=== PATIENT | male | born 1990 | race Caucasian/White ===

== ENCOUNTER 2023-05-21 15:00 | Emergency (ER) | payer BC, MEDICAID ==
[2023-05-21 15:44] LABS: BASOPHILS ABSOLUTE AUTO 0.08 K/uL (0.00-0.10); EOSINOPHILS ABSOLUTE AUTO 0.06 K/uL (0.00-0.40); EOSINOPHILS PERCENT AUTO 0.8 % (0.0-5.4); HEMATOCRIT 46.3 % (38.4-49.7); HEMOGLOBIN 16.7 g/dL (12.9-16.9); IMMATURE GRAN ABSOLUTE AUTO 0.03 K/uL (0.00-0.23); IMMATURE GRAN PERCENT AUTO 0.4 % (0.0-0.7); LYMPHOCYTES ABSOLUTE AUTO 2.05 K/uL (0.8-3.3); LYMPHOCYTES PERCENT AUTO 26.1 % (11.4-47.7); MEAN CORPUSCULAR HEMOGLOBIN 30.8 pg (31.6-35.5); MEAN CORPUSCULAR HGB CONC 36.1 g/dL (31.6-35.5); MEAN CORPUSCULAR VOLUME 85.4 fL (81.4-99.0); MONOCYTES ABSOLUTE AUTO 0.65 K/uL (0.20-0.90); MONOCYTES PERCENT AUTO 8.3 % (3.3-12.6); NEUTROPHILS ABSOLUTE AUTO 4.97 K/uL (1.0-7.6); NEUTROPHILS PERCENT AUTO 63.4 % (40.0-78.1); PLATELET COUNT,PLT 213 K/uL (130-375); RED BLOOD CELL COUNT 5.42 M/uL (4.14-5.76); WHITE BLOOD CELL COUNT,WBC 7.8 K/uL (3.2-11.0)
[2023-05-21 15:44] LABS: AMPHETAMINES SCREEN, URINE NEGATIVE (NEGATIVE); BARBITURATE SCREEN,URINE NEGATIVE (NEGATIVE); BENZODIAZEPINES SCREEN,URINE NEGATIVE (NEGATIVE); METHADONE SCREEN, URINE NEGATIVE (NEGATIVE); METHAMPHETAMINES SCREEN, URINE NEGATIVE (NEGATIVE); OXYCODONE SCREEN,URINE NEGATIVE (NEGATIVE); PROPOXYPHENE SCREEN,URINE NEGATIVE (NEGATIVE); THC SCREEN,URINE 50 NG/ML NEGATIVE (NEGATIVE)
[2023-05-21 15:59] LABS: CALCIUM 8.8 mg/dL (8.5-10.1); EST CRCL DRUG DOSING (CG) 110.86 mL/min; POTASSIUM,K 3.8 mmol/L (3.6-5.2)
[2023-05-21 16:06] LABS: ANION GAP 15.8 mmol/L (5.0-14.0)
[2023-05-21] MEDS ORDERED: LORazepam 1 MG Tab PO ONE (16:33)
== END 2023-05-21 17:04 | disposition home or self-care (01) ==
LOC: JP.ED 15:00
DX: F10.90 Alcohol use, unspecified, uncomplicated (principal)
CPT/HCPCS: 36415; 80048; 80305; 80307; 85025; 99284; A9270

== ENCOUNTER 2024-05-12 23:10 | Emergency (ER) | payer BC ==
[2024-05-13 00:11] LABS: AMPHETAMINES SCREEN, URINE NEGATIVE (NEGATIVE); BARBITURATE SCREEN,URINE NEGATIVE (NEGATIVE); BENZODIAZEPINES SCREEN,URINE NEGATIVE (NEGATIVE); METHADONE SCREEN, URINE NEGATIVE (NEGATIVE); METHAMPHETAMINES SCREEN, URINE NEGATIVE (NEGATIVE); OXYCODONE SCREEN,URINE NEGATIVE (NEGATIVE); PROPOXYPHENE SCREEN,URINE NEGATIVE (NEGATIVE); THC SCREEN,URINE 50 NG/ML PRESUMPTIVE POSITIVE (NEGATIVE)
== END 2024-05-13 01:20 | disposition home or self-care (01) ==
LOC: JP.ED 23:10
DX: F10.129 Alcohol abuse with intoxication, unspecified (principal); I10 Essential (primary) hypertension; Z79.899 Other long term (current) drug therapy
CPT/HCPCS: 36415; 80305-QW; 80307; 99284

== ENCOUNTER 2024-05-13 02:16 | Emergency (ER) | payer BC ==
[2024-05-13 05:58] LABS: BASOPHILS ABSOLUTE AUTO 0.06 K/uL (0.00-0.10); BASOPHILS PERCENT AUTO 0.7 % (0.1-1.3); EOSINOPHILS ABSOLUTE AUTO 0.07 K/uL (0.00-0.40); EOSINOPHILS PERCENT AUTO 0.8 % (0.0-5.4); HEMATOCRIT 44.7 % (38.4-49.7); HEMOGLOBIN 15.7 g/dL (12.9-16.9); IMMATURE GRAN ABSOLUTE AUTO 0.04 K/uL (0.00-0.23); IMMATURE GRAN PERCENT AUTO 0.4 % (0.0-0.7); LYMPHOCYTES ABSOLUTE AUTO 3.88 K/uL (0.8-3.3); LYMPHOCYTES PERCENT AUTO 42.5 % (11.4-47.7); MEAN CORPUSCULAR HEMOGLOBIN 31.8 pg (31.6-35.5); MEAN CORPUSCULAR HGB CONC 35.1 g/dL (31.6-35.5); MEAN CORPUSCULAR VOLUME 90.5 fL (81.4-99.0); MONOCYTES ABSOLUTE AUTO 1.01 K/uL (0.20-0.90); MONOCYTES PERCENT AUTO 11.1 % (3.3-12.6); NEUTROPHILS ABSOLUTE AUTO 4.06 K/uL (1.0-7.6); NEUTROPHILS PERCENT AUTO 44.5 % (40.0-78.1); PLATELET COUNT,PLT 251 K/uL (130-375); RED BLOOD CELL COUNT 4.94 M/uL (4.14-5.76); WHITE BLOOD CELL COUNT,WBC 9.1 K/uL (3.2-11.0)
[2024-05-13 06:10] LABS: ANION GAP 12.4 mmol/L (5.0-14.0); EST CRCL DRUG DOSING (CG) 106.72 mL/min; POTASSIUM,K 4.2 mmol/L (3.6-5.2)
== END 2024-05-13 07:56 | disposition other institution (70) ==
LOC: JP.ED 02:16
DX: F10.10 Alcohol abuse, uncomplicated (principal); I10 Essential (primary) hypertension; F17.210 Nicotine dependence, cigarettes, uncomplicated; Z79.899 Other long term (current) drug therapy
CPT/HCPCS: 36415; 80048; 80307; 85025; 99284

== ENCOUNTER 2024-10-25 21:09 | Emergency (ER) | payer BC | END 2024-10-25 21:44 | LOC: JP.ED 21:09 | DX: Z53.21 Procedure and treatment not carried out due to patient leaving prior to being seen by health care provider (principal) ==

== ENCOUNTER 2024-10-27 16:52 | Emergency (ER) | payer BC ==
[2024-10-27 17:21] LABS: AMPHETAMINES SCREEN, URINE NEGATIVE (NEGATIVE); BARBITURATE SCREEN,URINE NEGATIVE (NEGATIVE); BENZODIAZEPINES SCREEN,URINE NEGATIVE (NEGATIVE); METHADONE SCREEN, URINE NEGATIVE (NEGATIVE); METHAMPHETAMINES SCREEN, URINE NEGATIVE (NEGATIVE); OXYCODONE SCREEN,URINE NEGATIVE (NEGATIVE); PROPOXYPHENE SCREEN,URINE NEGATIVE (NEGATIVE); THC SCREEN,URINE 50 NG/ML PRESUMPTIVE POSITIVE (NEGATIVE)
== END 2024-10-27 18:38 | disposition home or self-care (01) ==
LOC: JP.ED 16:52
DX: F10.10 Alcohol abuse, uncomplicated (principal); I10 Essential (primary) hypertension; F17.200 Nicotine dependence, unspecified, uncomplicated; Z79.899 Other long term (current) drug therapy
CPT/HCPCS: 36415; 80305-QW; 80307; 99283; 99284

== ENCOUNTER 2025-02-01 20:13 | Emergency (ER) | payer BC | END 2025-02-01 21:15 | disposition left against medical advice (07) | LOC: JP.ED 20:13 | DX: Z53.21 Procedure and treatment not carried out due to patient leaving prior to being seen by health care provider (principal) ==

== ENCOUNTER 2025-02-05 15:57 | Emergency (ER) | payer BC ==
[2025-02-05 16:32] LABS: BASOPHILS ABSOLUTE AUTO 0.07 K/uL (0.00-0.10); BASOPHILS PERCENT AUTO 0.8 % (0.1-1.3); EOSINOPHILS ABSOLUTE AUTO 0.06 K/uL (0.00-0.40); EOSINOPHILS PERCENT AUTO 0.7 % (0.0-5.4); IMMATURE GRAN ABSOLUTE AUTO 0.03 K/uL (0.00-0.23); IMMATURE GRAN PERCENT AUTO 0.3 % (0.0-0.7); LYMPHOCYTES ABSOLUTE AUTO 3.57 K/uL (0.8-3.3); LYMPHOCYTES PERCENT AUTO 40.4 % (11.4-47.7); MONOCYTES ABSOLUTE AUTO 1.08 K/uL (0.20-0.90); MONOCYTES PERCENT AUTO 12.2 % (3.3-12.6); NEUTROPHILS ABSOLUTE AUTO 4.03 K/uL (1.0-7.6); NEUTROPHILS PERCENT AUTO 45.6 % (40.0-78.1); PLATELET COUNT,PLT 312 K/uL (130-375); RED BLOOD CELL COUNT 5.06 M/uL (4.14-5.76); WHITE BLOOD CELL COUNT,WBC 8.8 K/uL (3.2-11.0)
[2025-02-05 16:56] LABS: AMPHETAMINES SCREEN, URINE NEGATIVE (NEGATIVE); METHADONE SCREEN, URINE NEGATIVE (NEGATIVE); METHAMPHETAMINES SCREEN, URINE NEGATIVE (NEGATIVE); OXYCODONE SCREEN,URINE NEGATIVE (NEGATIVE); PROPOXYPHENE SCREEN,URINE NEGATIVE (NEGATIVE); THC SCREEN,URINE 50 NG/ML PRESUMPTIVE POSITIVE (NEGATIVE)
[2025-02-05 16:56] LABS: BLOOD UREA NITROGEN,BUN 16 mg/dL (7-18); CARBON DIOXIDE,CO2 28 mmol/L (21-32); CHLORIDE,CL 104 mmol/L (100-108); CREATININE 0.7 mg/dL (0.8-1.3); EST CRCL DRUG DOSING (CG) 156.88 mL/min; ESTIMATED GFR 123 mL/min (>60); POTASSIUM,K 3.5 mmol/L (3.6-5.2); SODIUM,NA 144 mmol/L (140-148)
[2025-02-05 17:26] LABS: ALANINE AMINOTRANSFERASE,ALT 76 U/L (12-78); ASPARTATE AMNIOTRANSFERASE,AST 55 U/L (15-37)
[2025-02-05 17:31] LABS: A/G RATIO 1.0 (1.2-2.2); PROTEIN TOTAL,TP 8.5 g/dL (6.4-8.2)
[2025-02-05 17:32] LABS: BILIRUBIN TOTAL 0.9 mg/dL (0.2-1.0); GLUCOSE RANDOM 142 mg/dL (74-106)
[2025-02-05] MEDS: Cyanocobalamin (Vitamin B12) 1,000 MCG Tab PO SCH (18:29)
[2025-02-05] MEDS: Vitamins A and D Oint 56.7 GM Tube TOP ONE (18:29)
== END 2025-02-05 18:33 | disposition other institution (70) ==
LOC: JP.ED 15:57
DX: F10.20 Alcohol dependence, uncomplicated (principal); I10 Essential (primary) hypertension; F17.200 Nicotine dependence, unspecified, uncomplicated; Z79.899 Other long term (current) drug therapy; Y90.8 Blood alcohol level of 240 mg/100 ml or more
CPT/HCPCS: 36415; 80053; 80305; 80307; 85025; 99284; A9270

== ENCOUNTER 2025-02-08 14:18 | Emergency (ER) | payer BC ==
[2025-02-08 14:53] LABS: BASOPHILS ABSOLUTE AUTO 0.09 K/uL (0.00-0.10); BASOPHILS PERCENT AUTO 1.1 % (0.1-1.3); EOSINOPHILS ABSOLUTE AUTO 0.07 K/uL (0.00-0.40); EOSINOPHILS PERCENT AUTO 0.9 % (0.0-5.4); IMMATURE GRAN PERCENT AUTO 0.2 % (0.0-0.7); LYMPHOCYTES ABSOLUTE AUTO 2.87 K/uL (0.8-3.3); LYMPHOCYTES PERCENT AUTO 35.7 % (11.4-47.7); MONOCYTES ABSOLUTE AUTO 0.75 K/uL (0.20-0.90); MONOCYTES PERCENT AUTO 9.3 % (3.3-12.6); NEUTROPHILS ABSOLUTE AUTO 4.23 K/uL (1.0-7.6); NEUTROPHILS PERCENT AUTO 52.8 % (40.0-78.1); PLATELET COUNT,PLT 251 K/uL (130-375); RED BLOOD CELL COUNT 4.90 M/uL (4.14-5.76); WHITE BLOOD CELL COUNT,WBC 8.0 K/uL (3.2-11.0)
[2025-02-08 15:09] LABS: IMMATURE GRAN ABSOLUTE AUTO 0.02 K/uL (0.00-0.23)
[2025-02-08 15:16] LABS: A/G RATIO 1.1 (1.2-2.2); ALANINE AMINOTRANSFERASE,ALT 132 U/L (12-78); ASPARTATE AMNIOTRANSFERASE,AST 120 U/L (15-37); BILIRUBIN TOTAL 0.8 mg/dL (0.2-1.0); BLOOD UREA NITROGEN,BUN 16 mg/dL (7-18); CARBON DIOXIDE,CO2 29 mmol/L (21-32); CHLORIDE,CL 105 mmol/L (100-108); CREATININE 0.6 mg/dL (0.8-1.3); EST CRCL DRUG DOSING (CG) 188.61 mL/min; ESTIMATED GFR 129 mL/min (>60); GLUCOSE RANDOM 136 mg/dL (74-106); POTASSIUM,K 3.6 mmol/L (3.6-5.2); PROTEIN TOTAL,TP 7.7 g/dL (6.4-8.2); SODIUM,NA 143 mmol/L (140-148)
[2025-02-08 21:16] LABS: AMPHETAMINES SCREEN, URINE NEGATIVE (NEGATIVE); METHADONE SCREEN, URINE NEGATIVE (NEGATIVE); METHAMPHETAMINES SCREEN, URINE NEGATIVE (NEGATIVE); OXYCODONE SCREEN,URINE NEGATIVE (NEGATIVE); PROPOXYPHENE SCREEN,URINE NEGATIVE (NEGATIVE); THC SCREEN,URINE 50 NG/ML NEGATIVE (NEGATIVE)
== END 2025-02-08 21:16 | disposition left against medical advice (07) ==
LOC: JP.ED 14:18
DX: F10.129 Alcohol abuse with intoxication, unspecified (principal); I10 Essential (primary) hypertension
CPT/HCPCS: 36415; 80053; 80305-QW; 80307; 85025; 99284

== ENCOUNTER 2025-02-09 19:05 | Emergency (ER) | payer BC ==
[2025-02-09 20:10] LABS: BASOPHILS ABSOLUTE AUTO 0.07 K/uL (0.00-0.10); BASOPHILS PERCENT AUTO 1.2 % (0.1-1.3); EOSINOPHILS ABSOLUTE AUTO 0.02 K/uL (0.00-0.40); EOSINOPHILS PERCENT AUTO 0.3 % (0.0-5.4); IMMATURE GRAN ABSOLUTE AUTO 0.02 K/uL (0.00-0.23); IMMATURE GRAN PERCENT AUTO 0.3 % (0.0-0.7); LYMPHOCYTES ABSOLUTE AUTO 1.92 K/uL (0.8-3.3); LYMPHOCYTES PERCENT AUTO 32.0 % (11.4-47.7); MONOCYTES ABSOLUTE AUTO 0.29 K/uL (0.20-0.90); MONOCYTES PERCENT AUTO 4.8 % (3.3-12.6); NEUTROPHILS ABSOLUTE AUTO 3.68 K/uL (1.0-7.6); NEUTROPHILS PERCENT AUTO 61.4 % (40.0-78.1); PLATELET COUNT,PLT 215 K/uL (130-375); RED BLOOD CELL COUNT 5.00 M/uL (4.14-5.76); WHITE BLOOD CELL COUNT,WBC 6.0 K/uL (3.2-11.0)
[2025-02-09 20:36] LABS: A/G RATIO 1.1 (1.2-2.2); BILIRUBIN TOTAL 0.9 mg/dL (0.2-1.0); BLOOD UREA NITROGEN,BUN 15 mg/dL (7-18); CARBON DIOXIDE,CO2 31 mmol/L (21-32); CHLORIDE,CL 102 mmol/L (100-108); CREATININE 0.9 mg/dL (0.8-1.3); EST CRCL DRUG DOSING (CG) 122.01 mL/min; ESTIMATED GFR 114 mL/min (>60); GLUCOSE RANDOM 130 mg/dL (74-106); POTASSIUM,K 3.6 mmol/L (3.6-5.2); PROTEIN TOTAL,TP 7.3 g/dL (6.4-8.2); SODIUM,NA 142 mmol/L (140-148)
[2025-02-09] MEDS: Ondansetron 4 MG Tab.DIS PO ONE (20:36)
[2025-02-09 20:48] LABS: ALANINE AMINOTRANSFERASE,ALT 1036 U/L (12-78); ASPARTATE AMNIOTRANSFERASE,AST 1094 U/L (15-37)
[2025-02-09 21:06] LABS: APPEARANCE,URINE CLEAR (CLEAR); GLUCOSE,URINE NEGATIVE (NEGATIVE); OCCULT BLOOD,URINE NEGATIVE (NEGATIVE)
[2025-02-09 21:13] LABS: AMPHETAMINES SCREEN, URINE NEGATIVE (NEGATIVE); METHADONE SCREEN, URINE NEGATIVE (NEGATIVE); METHAMPHETAMINES SCREEN, URINE NEGATIVE (NEGATIVE); OXYCODONE SCREEN,URINE NEGATIVE (NEGATIVE); PROPOXYPHENE SCREEN,URINE NEGATIVE (NEGATIVE); SQUAMOUS EPITHELIAL CELLS,UR RARE /HPF; THC SCREEN,URINE 50 NG/ML NEGATIVE (NEGATIVE); UROTHELIAL CELLS,URINE NOT SEEN /HPF
== END 2025-02-09 22:21 | disposition home or self-care (01) ==
LOC: JP.ED 19:05
DX: F10.120 Alcohol abuse with intoxication, uncomplicated (principal); F17.200 Nicotine dependence, unspecified, uncomplicated; I10 Essential (primary) hypertension
CPT/HCPCS: 36415; 80053; 80305; 80307; 81001; 83690; 85025; 99284; Q0162